=== PATIENT | male | born 1995 | race African-American/Black ===

== ENCOUNTER 2018-01-23 13:44 | Emergency (ER) | payer MEDICAID ==
[~2018-01-23] VITALS: Ht 180.3 cm; Wt 79.4 kg
[2018-01-23] MEDS ORDERED: DIAZEPAM 5 MG TABLET PO ONE (20:30)
[2018-01-23] MEDS ORDERED: IBUPROFEN 800MG TABLET PO ONE (20:30)
[2018-01-23 21:34] VITALS: BP 121/74
== END 2018-01-23 21:37 | disposition home or self-care (01) ==
LOC: ER 13:44
DX: S39.012A Strain of muscle, fascia and tendon of lower back, initial encounter (principal); S29.012A Strain of muscle and tendon of back wall of thorax, initial encounter; F12.10 Cannabis abuse, uncomplicated; X58.XXXA Exposure to other specified factors, initial encounter; Y93.89 Activity, other specified; Y92.89 Other specified places as the place of occurrence of the external cause; Y99.8 Other external cause status; Z98.890 Other specified postprocedural states
CPT/HCPCS: 71045; 99283